=== PATIENT | male | born 1995 | race Caucasian/White ===

== ENCOUNTER 2017-03-22 11:55 | Emergency (ER) | payer BC, OTHER ==
[~2017-03-22] VITALS: Ht 167.6 cm; Wt 80.0 kg
[~2017-03-22 11:55] MED LIST: IBUP-675 PO
[2017-03-22] MEDS ORDERED: IBUPROFEN 800 MG TABLET PO ONE (16:30)
[2017-03-22 19:19] VITALS: BP 121/67
== END 2017-03-22 19:23 | disposition home or self-care (01) ==
LOC: EMS 11:57
DX: S86.812A Strain of other muscle(s) and tendon(s) at lower leg level, left leg, initial encounter (principal); W01.0XXA Fall on same level from slipping, tripping and stumbling without subsequent striking against object, initial encounter; Y93.01 Activity, walking, marching and hiking; Y92.9 Unspecified place or not applicable; Y99.9 Unspecified external cause status
CPT/HCPCS: 29505; 99284

== ENCOUNTER 2019-04-07 09:02 | Emergency (ER) | payer BC ==
[~2019-04-07] VITALS: Ht 167.6 cm; Wt 83.2 kg
[2019-04-07] MEDS ORDERED: KETOROLAC TROMETHAMINE 30 MG/ML VIAL IM ONE (09:30)
[2019-04-07] MEDS ORDERED: LIDOCAINE 1% 10 ML VIAL INJ ONE (10:00)
[2019-04-07 10:35] VITALS: BP 121/66
== END 2019-04-07 11:00 | disposition home or self-care (01) ==
LOC: EMS 09:03
DX: S52.572A Other intraarticular fracture of lower end of left radius, initial encounter for closed fracture (principal); W21.02XA Struck by soccer ball, initial encounter; Y93.66 Activity, soccer; Y92.89 Other specified places as the place of occurrence of the external cause; Y99.8 Other external cause status
CPT/HCPCS: 25605; 73100; 73110; 96372; 99284; J1885; J3490